=== PATIENT | female | born 1990 | race African-American/Black ===

== ENCOUNTER 2017-09-07 15:55 | Outpatient (CLI) | payer MEDICARE, SELFPAY ==
[2017-09-07] MEDS: Lactated Ringers 1,000 ML 999 ML IV (16:53)
[2017-09-07 16:55] VITALS: BMI 44.5
--- NOTE | 2017-09-07 17:15 | OB.TRI.HP_ITS ---
History of Present Illness Date of Service: 09/07/17 Was patient seen by the physician?: Yes Reason For Visit: LIZZIE Date of Service: 09/07/17 Gestational age: 22 History of Present Illness: 27-year-old 4 para 1021 at 20 weeks 1 day gestational age presents complaining of some lower back and abdominal pain. She states she was out and about today visiting with some housing people and running errands and she went to the bathroom and had some vaginal discharge and that along with some low back achiness and lower abdominal pain prompted her to come to the emergency room. She arrived with her Hospital emergency room and was sent to labor and delivery. She denies any gross vaginal bleeding or leaking of fluid. She denies any fever, chills, chest pain, shortness of breath, area or hematuria, nausea vomiting or diarrhea. She sees Dr. Michael from [facility] due to h/o DVT and is on lovenox for this. Physical Exam General: Alert, Cooperative, No apparent distress Abdomen: Soft, Non Tender, Non-Distended, Gravid, - - some edemetous areas from lovenox injections Extremities:: No edema NST - FHR Rate Baby A Baseline: n/a Impression/Plan FHTs + 27-year-old 4 para 1021 at 20 1/7 weeks gestation complaining of lower abdominal pain. It is nonspecific and musculoskeletal in nature. There is no evidence of labor. We dopplered heart tones. We are giving her an IV fluid bolus. I reassured her that vaginal discharge is normal during . She denies change in sexual partners during the or history of sexually transmitted diseases. Will check urinalysis and if is suspicious will have it sent for culture. Otherwise will finish IV fluid bolus and discharge patient home to follow-up with her normal physician.
[2017-09-07 18:13] LABS: Color, Urine Yellow (Yellow); Glucose, Dipstick Normal (Normal); Ketone-Dipstick Negative (Negative); Leukocyte Esterase-Dipstick 25 /ul (Negative); Nitrite-Dipstick Negative (Negative); Occult Blood-Urine Negative /ul (Negative); Protein-Dipstick 15 mg/dl (Negative); Urine Bilirubin Dipstick Negative (Negative); Urine Clarity Sl. Cloudy (Clear); Urine Urobilinogen 1 mg/dl (Normal)
== END 2017-09-07 18:10 | disposition home or self-care (01) ==
LOC: WPOUT 16:21 → WP 16:22
PROVIDERS: Visit Provider Obstetrics & Gynecology
DX: O26.892 Other specified pregnancy related conditions, second trimester (principal); M54.5 Low back pain; R10.30 Lower abdominal pain, unspecified; Z79.01 Long term (current) use of anticoagulants; Z79.899 Other long term (current) drug therapy; Z3A.20 20 weeks gestation of pregnancy
CPT/HCPCS: 59050; 81002; 87086; 87088; 99218; J7120; G0378